=== PATIENT | female | born 1965 | race Caucasian/White ===

== ENCOUNTER → 2025-07-07 14:05 | Outpatient (REF) | payer OTHER, SELFPAY | LOC: RAD 14:05 | PROVIDERS: ATTENDING PHYSICIAN Internal Medicine Hematology & Oncology; FAMILY PHYSICIAN Family Medicine; REFERRING PHYSICIAN Internal Medicine Hospice and Palliative Medicine | DX: C18.1 Malignant neoplasm of appendix (principal); C78.6 Secondary malignant neoplasm of retroperitoneum and peritoneum; C18.2 Malignant neoplasm of ascending colon | CPT/HCPCS: 71260; 74177; Q9967 ==

== ENCOUNTER → 2025-09-01 10:45 | Outpatient (REF) | payer OTHER, SELFPAY | LOC: RAD 10:45 | PROVIDERS: ATTENDING PHYSICIAN Internal Medicine Hematology & Oncology; FAMILY PHYSICIAN Family Medicine | DX: C18.1 Malignant neoplasm of appendix (principal); C18.2 Malignant neoplasm of ascending colon; C78.6 Secondary malignant neoplasm of retroperitoneum and peritoneum | CPT/HCPCS: 71260; 74177; Q9967 ==